=== PATIENT | female | born 1950 | race Hispanic/Latino ===

== ENCOUNTER → 2019-02-07 | Day surgery (SDC) | payer OTHER ==
[2019-02-04 13:49] LABS: BASOPHILS % 0.5 % (0.0-1.0); EOSINOPHILS # (AUTO) 0.1 (0.0-0.4); EOSINOPHILS % 1.5 % (0.0-6.0); HEMATOCRIT 43.5 % (34.2-44.1); HEMOGLOBIN 14.1 g/dL (12.0-16.0); LYMPHOCYTES % 26.5 % (18.0-39.1); MEAN CORPUSCULAR HEMOGLOBIN 30.8 pg (28-32); MEAN CORPUSCULAR HGB CONC 32.4 g/dL (31-35); MONOCYTES # (AUTO) 0.7 (0.2-0.8); MONOCYTES % 9.2 % (4.4-11.3); NEUTROPHILS # (AUTO) 4.6 (2.1-6.9); NEUTROPHILS % 61.8 % (38.7-80.0); PLATELET COUNT 184 x10e3/uL (140-360); RED BLOOD COUNT 4.58 x10e6/uL (3.6-5.1); RED CELL DISTRIBUTION WIDTH 12.5 % (11.7-14.4)
[~2019-02-07] MED LIST: FENTANYL CITRATE/PF 100MCG/2 ML INJ ONE; HYDROCHLOROTHIA25 MG PO; HYOSCYAMINE 0.125 MG TAB ONE; LISINOPRIL10 MG PO; MIDAZOLAM HCL 2 MG/2 ML VIAL ONE; PROPOFOL IV EMULSION 10 MG/ML 50 ML VIAL ONE
--- OUTSIDE RECORDS SUMMARY | 2019-02-07 05:53 | XMS REPORT ---
Author Author [facility] Address Unknown Phone Unavailable Care Team Providers Care Supervisor Correspondence Section Name Role Phone UNKNOWN, REFFERING PP Unavailable Problems This patient has no known problems. Allergies, Adverse Reactions, Alerts This patient has no known allergies or adverse reactions. Medications This patient has no known medications. Encounters Start Date/Time End Date/Time Encounter Type Admission Type Attending Clinicians Care Facility Care Department Encounter ID 2017-02-03 17:53:00 2017-02-03 17:53:00 Emergency E [facility] [id number] Results Test Description Test Time Test Comments Text Results Atomic Results Result Comments [id number]& PELVIS W/O CONTRAST 2017-02-03 18:57:52 EXAM: CT CHEST, ABDOMEN AND PELVIS WITHOUT CONTRASTINDICATION: TraumaCOMPARISON: December 05, 2007TECHNIQUE: Routine axial CT images of the chest, abdomen and pelvis wereobtained without the administration of intravenous contrast. Coronal andsagittal reformatted images were submitted for review.IV contrast: NoneDLP: 1194.6 mGy-cmFINDINGS: The heart size is normal. The thoracic aorta and great vessels arenormal in course and caliber. No mediastinal hematoma. No pericardialeffusion is identified. Minimal atelectasis in both lung bases. Nopneumothorax is identified. No pleural effusion is identified. Thetrachea and central airways are patent.No mediastinal, hilar, supraclavicular or axillary adenopathy isidentified. The thyroid gland is normal in appearance.The noncontrast appearance of the liver, spleen, pancreas, adrenalglands and gallbladder are normal. No intrahepatic biliary ductaldilatation. No liver lesions are identified. The main portal vein andsplenic veins are patent.The kidneys are normal in appearance. No nephrolithiasis,hydronephrosis, or perinephric stranding is identified. The urinarybladder is normal in appearance.The stomach, small bowel, large bowel and appendix are normal. Noevidence of bowel obstruction.No lymphadenopathy is identified in the abdomen or pelvis. No free fluidor free air is identified. The IVC is normal. The abdominal aorta isnormal in caliber. There are atherosclerotic calcifications of theabdominal aorta.The uterus is normal in appearance. No adnexal mass.Degenerative changes of the thoracolumbar spine. No acute fracture isidentified.IMPRESSION: No acute tr aumatic injury is identified in the chest, abdomen or pelvis.LOCATION: R16 CT CHEST W/O CONTRAST 2017-02-03 18:57:52 EXAM: CT CHEST, ABDOMEN AND PELVIS WITHOUT CONTRASTINDICATION: TraumaCOMPARISON: December 05, 2007TECHNIQUE: Routine axial CT images of the chest, abdomen and pelvis wereobtained without the administration of intravenous contrast. Coronal andsagittal reformatted images were submitted for review.IV contrast: NoneDLP: 1194.6 mGy-cmFINDINGS: The heart size is normal. The thoracic aorta and great vessels arenormal in course and caliber. No mediastinal hematoma. No pericardialeffusion is identified. Minimal atelectasis in both lung bases. Nopneumothorax is identified. No pleural effusion is identified. Thetrachea and central airways are patent.No mediastinal, hilar, supraclavicular or axillary adenopathy isidentified. The thyroid gland is normal in appearance.The noncontrast appearance of the liver, spleen, pancreas, adrenalglands and gallbladder are normal. No intrahepatic biliary ductaldilatation. No liver lesions are identified. The main portal vein andsplenic veins are patent.The kidneys are normal in appearance. No nephrolithiasis,hydronephrosis, or perinephric stranding is identified. The urinarybladder is normal in appearance.The stomach, small bowel, large bowel and appendix are normal. Noevidence of bowel obstruction.No lymphadenopathy is identified in the abdomen or pelvis. No free fluidor free air is identified. The IVC is normal. The abdominal aorta isnormal in caliber. There are athero sclerotic calcifications of theabdominal aorta.The uterus is normal in appearance. No adnexal mass.Degenerative changes of the thoracolumbar spine. No acute fracture isidentified.IMPRESSION: No acute traumatic injury is identified in the chest, abdomen or pelvis.LOCATION: R16 CT CERVICAL SPINE LTD W/O CONTRAS 2017-02-03 18:55:56 EXAM: CT CERVICAL SPINE WITHOUT CONTRASTINDICATION: MVCCOMPARISON: None availableTECHNIQUE: Axial CT imaging of the cervical spine was obtained withoutintravenous contrast. Coronal and sagittal reformatted images weresubmitted for review. IV contrast: None.DLP: 527.4 mGy-cmDISCUSSION: No acute fracture or dislocation is identified. The atlantoaxial andatlantooccipital articulations are normal. The vertebral bodies arenormal in height, alignment and density. The facet joints and spinousprocesses are normal in alignment. There is diffuse facet jointarthropathy. There is loss of intervertebral disc height throughout thecervical spine. No spinal canal or neuroforaminal stenosis.The prevertebral and posterior paraspinal soft tissues are normal.IMPRESSION: 1. No acute abnormality of the cervical spine.2. 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 No spinal canal or neuroforaminal stenosis.LOCATION: R16
--- NOTE | 2019-02-07 07:09 | NUR ---
Pt sleeping soundly and no family present. YEVGENIY ANDERSON [employer] Spiritual Care Department O: [phone] Pager: [phone] ([phone] calling from)
[2019-02-07 12:50] VITALS: BP 146/79
--- NOTE | 2019-02-07 19:48 | Operative Report ---
DATE OF PROCEDURE: 02/07/2019 SURGEON: Johnathan Lambert MD REFERRING PHYSICIAN: Dr. Ina Biggs MD INDICATION FOR COLONOSCOPY: Surveillance colonoscopy, personal history of colon polyps. MEDICATIONS: The patient was done under MAC. Please see anesthesiologist's note. PROCEDURE IN DETAIL: With the patient in left lateral decubitus position, flexible fiberoptic Olympus colonoscope was inserted into the rectum with ease and advanced all the way to the cecum. A minute polyp was noted in the cecum that was removed per the cold biopsy forceps. Diverticular disease was noted to be scattered throughout, but more prominent in the left colon. One polyp was removed per snare electrocautery from the distal ascending colon. One polyp was removed per snare electrocautery from the transverse colon. Polypectomy site in the ascending colon was hemoclipped. The descending colon other than for some diverticular disease appeared to be within normal limits. Three polyps were hot biopsied, one polyp was snared from the sigmoid colon. One polyp was hot biopsied from the rectum. The scope was then retroflexed into the distal rectum. Small internal hemorrhoids were noted, none of which was actively bleeding. The scope was then straightened out, it was subsequently withdrawn. The patient tolerated procedure well. IMPRESSION: 1. Cecal polyp, removed per cold biopsy forceps. 2. Diverticulosis. 3. Ascending colon polyp snared. site hemoclipped. 4. Transverse colon polyp snared, repeat transverse colon polyp removed per snare electrocautery. 5. Sigmoid colon polyps x4, 1 removed for snare electrocautery and 3 hot biopsied. 6. Rectal polyp, hot biopsied. 7. Internal hemorrhoids none actively bleeding. A total of 8 polyps were removed. The patient tolerated procedure well. PLAN: Followup histology. Initiate high-fiber, low-fat diet. Initiate high-fiber supplement. The patient might benefit from a followup colonoscopy in 3 years. A total of 8 polyps were removed. Johnathan Lambert MD [facility] [place][id number] cc: MD Ina Calderón MD
== END | disposition home or self-care (01) ==
LOC: OR 05:45
PROVIDERS: ATTEND Internal Medicine Gastroenterology
DX: Z12.11 Encounter for screening for malignant neoplasm of colon (principal); D12.2 Benign neoplasm of ascending colon; D12.0 Benign neoplasm of cecum; D12.3 Benign neoplasm of transverse colon; Z86.010 Personal history of colon polyps; Z01.810 Encounter for preprocedural cardiovascular examination; Z01.812 Encounter for preprocedural laboratory examination; I10 Essential (primary) hypertension; K57.30 Diverticulosis of large intestine without perforation or abscess without bleeding; K64.8 Other hemorrhoids; K62.1 Rectal polyp
CPT/HCPCS: 36415; 45380; 45384; 45385; 85025; 93005; J2250; J2704; J3010